=== PATIENT | male | born 1955 | race Caucasian/White ===

== ENCOUNTER 2017-06-10 10:36 | Emergency (ER) | payer SELFPAY ==
[2017-06-10 11:09] VITALS: BP 143/86
--- NOTE | 2017-06-10 14:40 | UC ---
Christa Slaughter Jason, [facility] on 06/10/17 at 1233 . Back Pain HPI - HPI Summary HPI Summary: In Room: This patient is a 61 year old M presenting to [facility] [place] with a chief complaint of lower back pain that started at 1000 1 day ago. The pt states that he slipped and fell on ice and hit the corner of his seat. He is not experiencing left flank pain. The patient rates the pain 6/10 in severity. Symptoms aggravated by exercise/activity, walking, changing position. Symptoms alleviated by nothing. Patient reports left flank pain. Patient denies difficulty breathing, urinary sx, spinal injury, and bowel changes. The pt states he has spent the night at a hospital 20 years ago when he believed he was having a KS. When he broke his rip he was given Vicodin but did not take it. note: VSS, BP 143/86, PULSE OX: 97, 6/10 PAIN. Visit history: noncontributory to present complaint. He is on Lisinopril for HTN. Nurses note: Patient states he slipped and fell yesterday on the ice and he injured his left side and back. He states he hit his truck as he was falling down - History of Current Complaint Chief Complaint: UCBackPain Stated Complaint: FELL SIDE INJURY Time Seen by Provider: 06/10/17 12:24 Hx Obtained From: Patient Onset/Duration: Sudden Onset Timing: Constant Pain Intensity: 6 Pain Scale Used: 0-10 Numeric Character: Sharp Aggravating Factor(s): Other - by exercise/activity, walking, changing position Alleviating Factor(s): Nothing Associated Signs And Symptoms: Positive: Other - left flank pain - Allergies/Home Medications Allergies/Adverse Reactions: Allergies Allergy/AdvReac Type Severity Reaction Status Date / Time No Known Allergies Allergy Verified 06/10/17 11:01 Home Medications: Home Medications Cholesterol Med 06/10/17 [History] PMH/Surg Hx/FS Hx/Imm Hx Previously Healthy: No Cardiovascular History: Hypertension Respiratory History: Other Other Respiratory History: Negative Asthma - Surgical History Surgical History: Yes Surgery Procedure, Year, and Place: hernia repair - Family History Known Family History: Positive: Cardiac Disease Negative: Blood Disorder - Social History Occupation: Employed Full-time Alcohol Use: Occasionally Alcohol Amount: 1 beer/week Substance Use Type: None Smoking Status (MU): Former Smoker Review of Systems All Other Systems Reviewed And Are Negative: Yes - Comments Additional Review of Systems Comments: A 12 point review of systems was completed and significantly positive for: Left flank pain. Negative for: Fever. The remainder of the review was negative except as stated above in the HPI. Physical Exam Triage Information Reviewed: Yes Vital Signs: Initial Vital Signs Temp 98.6 F 06/10/17 11:03 Pulse 92 06/10/17 11:03 Resp 20 06/10/17 11:03 BP 143/86 06/10/17 11:03 Pulse Ox 97 06/10/17 11:03 - Additional Comments General: The patient is well-nourished in no acute distress and in no acute pain. Skin: The skin is warm and dry and skin color reflects adequate perfusion. HEENT: The head is normocephalic and atraumatic. The pupils are equal and reactive. The conjunctivae are clear and without drainage. Nares are patent and without drainage. Mouth reveals moist mucous membranes and the throat is without erythema and exudate. The external ears are intact. The ear canals are patent and without drainage. The tympanic membranes are intact. Neck is supple with full range of motion and non-tender. There are no carotid bruits. There is no neck vein distension. Respiratory: Chest is non-tender. Lungs are clear to auscultation and breath sounds are symmetrical and equal. Cardiovascular: Heart is regular rate and rhythm.~There is no murmur or rub auscultated. There is no peripheral edema and pulses are symmetrical and equal. Abdomen: The abdomen is soft and non-tender. There are normal bowel sounds heard in all four quadrants and there is no organomegaly palpated. Musculoskeletal: There is no back pain noted. Extremities are non-tender with full range of motion. There is good capillary refill. There is no peripheral edema or calf tenderness elicited. Pain in lower left posterior thorax. Pain of palpation in area of D12 posteriorly. Neurological: Patient is alert and oriented to person, place and time. The patient has symmetrical motor strength in all four extremities. Cranial nerves are grossly intact. Deep tendon reflexes are symmetrical and equal in all four extremities. Psychiatric: The patient has an appropriate affect and does not exhibit any anxiety or depression Back Pain Course/Dx - Course Course Of Treatment: This patient is a 61 year old M presenting to [facility] [place] with a chief complaint of lower back pain that started at 1000 1 day ago. The patient s lungs were clear, with no point tenderness to particular rib. The mechanism of injury suggests blunt, mild to moderate trauma. I discussed with the patient that this should get better soon and instructed him to return if he has difficulty breathing or increased body temperature. Dx: contusion of left posterior thorax. - Differential Dx/Diagnosis Differential Diagnosis/HQI/PQRI: Other - Rib fracture, rib injury, contusion, muscle strain Provider Diagnoses: contusion of left posterior thorax Discharge - Discharge Plan Condition: Stable Disposition: HOME Patient Education Materials: Thoracic Back Strain (ED) Referrals: No Primary Care Phys,NOPCP [Primary Care Provider] - Additional Instructions: Thank you for helping us improve patient care by filling out the My Point Survey. WE DISCUSSED: YOU HAVE BRUISED YOUR RIBS. WARM MOIST HEAT IN THE MORNING; ICE TO AREA DURING THE DAY. WATCH FOR ANY PROBLEMS BREATHING. Re check at any time for this or for temperature. FOR PAIN: Ibuprofen 600mg (3 pills) and acetaminophen 500 mg taken at the same time, up to four times a day would be good for both pain and calming down the inflammation. This may irritate your stomach. Take an antacid if it does. If you need to do this for more than a week because of pain, check with your doctor. FOLLOW UP WITH YOUR PRIMARY CARE PHYSICIAN.Your blood pressure reading today was 143/86, indicating HYPERTENSION. Follow-up with your primary care provider within 4 weeks for blood pressure readings and further evaluation. PLEASE SEEK CARE AT THE EMERGENCY DEPARTMENT IF SYMPTOMS WORSEN OR IF NEW SYMPTOMS DEVELOP. The documentation as recorded by the Christa felix Jason accurately reflects the service I personally performed and the decisions made by me, Bienvenido Wallace MD.
== END 2017-06-10 12:43 | disposition home or self-care (01) ==
LOC: UCEAST 10:36
DX: S20.222A Contusion of left back wall of thorax, initial encounter (principal); W00.0XXA Fall on same level due to ice and snow, initial encounter; Y93.9 Activity, unspecified; Y92.9 Unspecified place or not applicable; Y99.9 Unspecified external cause status; Z87.891 Personal history of nicotine dependence
CPT/HCPCS: 99211; G0463

== ENCOUNTER 2017-06-23 08:15 | Emergency (ER) | payer BC ==
[2017-06-23 08:28] VITALS: BP 151/81
--- NOTE | 2017-06-23 08:46 | UC ---
Respiratory Complaint HPI - HPI Summary HPI Summary: 61 yo male with one month hx of nasal congestion and post nasal drip facial pressure cough no f/c - History of Current Complaint Chief Complaint: UCRespiratory Stated Complaint: SINUS ISSUE Time Seen by Provider: 06/23/17 08:40 Hx Obtained From: Patient Onset/Duration: Gradual Onset, Lasting Weeks Timing: Constant Severity Initially: Mild Severity Currently: Moderate Pain Intensity: 4 Pain Scale Used: 0-10 Numeric Character: Cough: Nonproductive Aggravating Factors: Nothing Alleviating Factors: Nothing Associated Signs And Symptoms: Positive: URI, Nasal Congestion, Sinus Discomfort - Allergies/Home Medications Allergies/Adverse Reactions: Allergies Allergy/AdvReac Type Severity Reaction Status Date / Time No Known Allergies Allergy Verified 06/10/17 11:01 Home Medications: Home Medications Acetaminophen [Tylenol] 06/23/17 [History] Ibuprofen TAB* [Motrin TAB* 600 MG] 600 mg PO Q6H PRN 06/23/17 [History Confirmed 06/23/17] PMH/Surg Hx/FS Hx/Imm Hx Previously Healthy: Yes Endocrine History: Dyslipidemia Cardiovascular History: Hypertension - Surgical History Surgical History: Yes Surgery Procedure, Year, and Place: hernia repair - Family History Known Family History: Positive: Cardiac Disease, Hypertension Negative: Blood Disorder - Social History Alcohol Use: Occasionally Alcohol Amount: 1 beer/week Substance Use Type: None Smoking Status (MU): Former Smoker Review of Systems Constitutional: Fever Skin: Negative Eyes: Negative ENT: Sore Throat, Nasal Discharge, Sinus Congestion, Sinus Pain/Tenderness Respiratory: Cough Cardiovascular: Negative Gastrointestinal: Negative Genitourinary: Negative Motor: Negative Neurovascular: Negative Musculoskeletal: Negative Neurological: Negative Psychological: Negative Is Patient Immunocompromised?: No All Other Systems Reviewed And Are Negative: Yes Physical Exam Triage Information Reviewed: Yes Appearance: Well-Appearing, No Pain Distress, Well-Nourished Vital Signs: Initial Vital Signs Temp 98.4 F 06/23/17 08:18 Pulse 88 06/23/17 08:18 Resp 18 06/23/17 08:18 BP 151/81 06/23/17 08:18 Pulse Ox 97 06/23/17 08:18 Eyes: Positive: Conjunctiva Clear ENT: Positive: Hearing grossly normal, Nasal congestion, Nasal drainage, TMs normal, Hoarse voice, Sinus tenderness, Uvula midline. Negative: Tonsillar swelling, Tonsillar exudate, Trismus, Muffled voice Neck: Positive: Supple, Nontender, No Lymphadenopathy Respiratory: Positive: Lungs clear, Normal breath sounds, No respiratory distress, No accessory muscle use Cardiovascular: Positive: RRR, No Murmur Musculoskeletal: Positive: ROM Intact, No Edema Neurological: Positive: Alert Psychological Exam: Normal Skin Exam: Normal UC Diagnostic Evaluation - Laboratory O2 Sat by Pulse Oximetry: 97 - normal/not hyhpoxic Respiratory Course/Dx - Differential Dx/Diagnosis Provider Diagnoses: acute sinusitis Discharge - Discharge Plan Condition: Stable Disposition: HOME Prescriptions: Amoxicillin PO (*) [Amoxicillin 875 MG (*)] 875 mg PO BID #20 tab Fluticasone NASAL SPRAY 50MCG* [Flonase NASAL SPRAY 50MCG*] 2 spray BOTH NARES DAILY #1 btl Patient Education Materials: Sinusitis (ED), Warm Compress or Soak (ED) Referrals: No Primary Care Phys,NOPCP [Primary Care Provider] - Additional Instructions: recheck next week if not better if unable to get in to see your MD you may return here saline nasal spray twice daily
== END 2017-06-23 08:49 | disposition home or self-care (01) ==
LOC: UCEAST 08:15
DX: J01.90 Acute sinusitis, unspecified (principal); Z87.891 Personal history of nicotine dependence; Z72.89 Other problems related to lifestyle
CPT/HCPCS: 99211; G0463

== ENCOUNTER 2017-07-21 18:08 | Emergency (ER) | payer BC ==
[2017-07-21 18:16] VITALS: BP 136/85
--- NOTE | 2017-07-21 18:51 | UC ---
Ravinder Slaughter Natalie, scribed for Antonio Gonzalez MD on 07/21/17 at 1847 . Respiratory Complaint HPI - HPI Summary HPI Summary: The pt is a 61 y/o M presenting to c/o sinus infection symptoms in the last week. He visited for a sinus infection a month ago and was prescribed Augmentin. He felt better, but the symptoms came back. He uses a CPAP at night to some relief. Pt additionally c/o post nasal drip, ear pain, and wheezing. - History of Current Complaint Chief Complaint: UCRespiratory Stated Complaint: SINUS COMPLAINT Time Seen by Provider: 07/21/17 18:23 Hx Obtained From: Patient Onset/Duration: Lasting Days, Still Present Severity Initially: Mild Severity Currently: Mild Pain Intensity: 0 Pain Scale Used: 0-10 Numeric Aggravating Factors: Nothing Alleviating Factors: Nothing Associated Signs And Symptoms: Positive: Wheezing, Nasal Congestion, Sinus Discomfort - Allergies/Home Medications Allergies/Adverse Reactions: Allergies Allergy/AdvReac Type Severity Reaction Status Date / Time No Known Allergies Allergy Verified 07/21/17 18:11 PMH/Surg Hx/FS Hx/Imm Hx - Surgical History Surgical History: Yes Surgery Procedure, Year, and Place: hernia repair - Family History Known Family History: Positive: Cardiac Disease, Hypertension Negative: Blood Disorder - Social History Alcohol Use: Occasionally Alcohol Amount: 1 beer/week Substance Use Type: None Smoking Status (MU): Former Smoker Review of Systems ENT: Ear Ache, Nasal Discharge, Sinus Congestion Respiratory: Other - wheezing All Other Systems Reviewed And Are Negative: Yes Physical Exam Triage Information Reviewed: Yes Appearance: Well-Appearing, No Pain Distress Vital Signs: Initial Vital Signs Temp 97.7 F 07/21/17 18:13 Pulse 78 07/21/17 18:13 Resp 20 07/21/17 18:13 BP 136/85 07/21/17 18:13 Pulse Ox 96 07/21/17 18:13 Vital Signs Reviewed: Yes Eye Exam: Normal ENT: Positive: Normal ENT inspection Neck: Positive: Supple, Nontender Respiratory: Positive: Other: - CTA, breath sounds present Cardiovascular: Positive: RRR Abdomen Description: Positive: Nontender, Soft Bowel Sounds: Positive: Present Musculoskeletal Exam: Normal Musculoskeletal: Positive: Strength Intact, ROM Intact Neurological: Positive: Other: - normal, sensory/motor intact, A&O x3 Psychological: Positive: Other: - affect/mood appropriate Skin: Positive: Other - warm, color reflects adequate perfusion, dry UC Diagnostic Evaluation - Laboratory O2 Sat by Pulse Oximetry: 96 Respiratory Course/Dx - Course Course Of Treatment: Medications reviewed. SINUSITIS LAST MONTH TREATED WITH AUGMENTIN. SX HAVE RETURNED. DISCUSSED TREATMENT WITH AUGMENTIN AGAIN VERSES STARTING A NEW ABX. PATIENT PREFERS A NEW ABX. RX MOXIFLOXACIN. F/U PMD; RETURN IF WORSE. - Differential Dx/Diagnosis Provider Diagnoses: RECURRENT SINUSITIS Discharge - Discharge Plan Condition: Stable Disposition: HOME Prescriptions: Moxifloxacin TAB(NF) [Avelox TAB (NF)] 400 mg PO DAILY #10 tab Patient Education Materials: Sinusitis (ED) Referrals: [facility] [place] [facility]IAN REFERRAL [Outside] No Primary Care Phys,NOPCP [Primary Care Provider] - Additional Instructions: FOLLOW UP WITH YOUR DOCTOR. GET RECHECKED FOR ANY WORSENING OF YOUR CONDITION OR QUESTIONS OR CONCERNS. The documentation as recorded by the Ravinder felix Natalie accurately reflects the service I personally performed and the decisions made by me, Antonio Gonzalez MD.
== END 2017-07-21 18:45 | disposition home or self-care (01) ==
LOC: UCEAST 18:08
DX: J32.9 Chronic sinusitis, unspecified (principal); Z87.891 Personal history of nicotine dependence
CPT/HCPCS: 99212; G0463

== ENCOUNTER 2018-11-08 17:06 | Emergency (ER) | payer BC ==
[2018-11-08 17:21] VITALS: BP 154/86
--- NOTE | 2018-11-08 17:41 | UC ---
Skin Complaint HPI - HPI Summary HPI Summary: 63-year-old male presents with complaints of tick bite to his right forearm. States she discovered the tick this afternoon and removed immediately. He is uncertain of how long it was attached or if it was engorged. Denies fever, chills, flulike illness, rash, myalgias, joint pain or swelling. - History of Current Complaint Chief Complaint: UCSkin Time Seen by Provider: 11/08/18 17:27 Stated Complaint: TICK BITE Hx Obtained From: Patient Pain Intensity: 0 - Allergy/Home Medications Allergies/Adverse Reactions: Allergies Allergy/AdvReac Type Severity Reaction Status Date / Time No Known Allergies Allergy Verified 07/21/17 18:11 Home Medications: Home Medications Ibuprofen 800 mg PO Q8HR PRN 11/08/18 [History Confirmed 11/08/18] PMH/Surg Hx/FS Hx/Imm Hx Endocrine History: Dyslipidemia Cardiovascular History: Hypertension - Surgical History Surgical History: Yes Surgery Procedure, Year, and Place: hernia repair - Family History Known Family History: Positive: Cardiac Disease, Hypertension Negative: Blood Disorder - Social History Occupation: Employed Full-time Lives: With Family Alcohol Use: Occasionally Alcohol Amount: 1 beer/week Substance Use Type: None Smoking Status (MU): Former Smoker Review of Systems All Other Systems Reviewed And Are Negative: Yes Constitutional: Negative: Fever, Chills Skin: Negative: Rash Respiratory: Positive: Negative Cardiovascular: Positive: Negative Gastrointestinal: Positive: Negative Genitourinary: Positive: Negative Musculoskeletal: Negative: Arthralgia, Myalgia Neurological: Positive: Negative Is Patient Immunocompromised?: No Physical Exam - Summary Physical Exam Summary: GENERAL APPEARANCE: Well developed, well nourished, alert and cooperative, and appears to be in no acute distress. CARDIAC: Normal S1 and S2. No S3, S4 or murmurs. Rhythm is regular. There is no peripheral edema, cyanosis or pallor. Extremities are warm and well perfused. Capillary refill is less than 2 seconds. Peripheral pulses intact. LUNGS: Clear to auscultation without rales, rhonchi, wheezing or diminished breath sounds. ABDOMEN: Positive bowel sounds. Soft, nondistended, nontender. No guarding or rebound. No masses or hepatosplenomegally. MUSKULOSKELETAL: ROM intact to all extremities. No joint erythema or tenderness. Normal muscular development. Normal gait. SKIN: 1.5 cm area of erythema to right forearm. Triage Information Reviewed: Yes Vital Signs: Initial Vital Signs Temp 98.9 F 11/08/18 17:17 Pulse 77 11/08/18 17:17 Resp 18 11/08/18 17:17 BP 154/86 11/08/18 17:17 Pulse Ox 94 11/08/18 17:17 Vital Signs Reviewed: Yes Course/Dx - Course Course Of Treatment: 63-year-old male presents with complaints of tick bite to his right forearm. States she discovered the tick this afternoon and removed immediately. He is uncertain of how long it was attached or if it was engorged. Denies fever, chills, flulike illness, rash, myalgias, joint pain or swelling. Afebrile. Hypertensive otherwise vital signs stable. Exam revealed a 1.5 cm circular area of erythema to his right forearm and was otherwise unremarkable. Discussed criteria for prophylactic treatment for Lyme disease as well as the risks and benefits of taking the doxycycline and patient is electing to treat at this time. He was given doxycycline 200 mg 1 dose in the clinic. I reviewed signs and symptoms of Lyme disease with the patient as well as provided him with anticipatory guidance and warning symptoms requiring immediate medical attention. He verbalizes understanding and agrees with plan of care. - Differential Diagnoses - Skin Complaint Differential Diagnoses: Local Allergic Reaction, Tick Born Illness - Diagnoses Provider Diagnosis: Tick bite of right forearm Discharge - Sign-Out/Discharge Documenting (check all that apply): Patient Departure All imaging exams completed and their final reports reviewed: No Studies - Discharge Plan Condition: Stable Disposition: HOME Patient Education Materials: Tick Bite (ED) Referrals: No Primary Care Phys,NOPCP [Primary Care Provider] - Additional Instructions: Ticks transmit infection only after they have attached and then taken a blood meal from their new host. A tick that has not attached cannot not pass any infection. Since the deer tick that transmits Lyme disease typically feeds for more than 36 hours before transmitting the organisim that causes Lyme disease, the risk of acquiring Lyme disease from an tick bite is only 1.2 to 1.4 percent , even in an area where the disease is common. Since we do not know how long the tick was attached or if it was engorged we gave you a dose of doxycycline 200 mg x 1 dose in the clinic which is used to prevent Lyme disease. There is no benefit of blood testing for Lyme disease at the time of the tick bite because even people who become infected will not have a positive blood test until approximately two to six weeks after the tick bite. To try to avoid getting bitten by a tick, you can: * Wear shoes, long-sleeved shirts, and long pants when you go outside. Keep ticks away from your skin by tucking your pants into your socks. * Wear light colors so you can spot any ticks that get on your clothes. * Wear bug spray or cream that contains DEET. (Do not use DEET on babies younger than 2 months.) On your clothes and gear, you can use bug repellents that have a chemical called "permethrin." * Shower within 2 hours of being outdoors if you think you have been in an area where there are ticks. * Put dry clothes briefly (for about 4 minutes) in a dryer after being outdoors. * Check your clothes and body for ticks after being outdoors. Be sure to check your scalp, waist, armpits, groin, and backs of your knees. Check your children , too. After a tick bite, you will need to monitor for signs of Lyme disease over the nexter several weeks even if you have been given antibiotics to prevent the infection. Seek immediate medical attention if you develop a bullseye rash, fever, flu-like symptoms including headache, stiff neck, fatigue, muscle aches, joint pain or swelling. - Billing Disposition and Condition Condition: STABLE Disposition: Home
[2018-11-08] MEDS ORDERED: DOXYcycline CAP(*) 100 MG PO ONE (17:45)
== END 2018-11-08 17:50 | disposition home or self-care (01) ==
LOC: UCEAST 17:06
DX: S50.861A Insect bite (nonvenomous) of right forearm, initial encounter (principal); I10 Essential (primary) hypertension; W57.XXXA Bitten or stung by nonvenomous insect and other nonvenomous arthropods, initial encounter; Y92.9 Unspecified place or not applicable
CPT/HCPCS: 99201; A9270-GY; G0463

== ENCOUNTER 2019-02-02 14:32 | Emergency (ER) | payer BC, OTHER ==
[2019-02-02 14:49] VITALS: BP 157/91
--- NOTE | 2019-02-02 15:28 | UC ---
Lower Extremity/Ankle HPI - HPI Summary HPI Summary: 63 year old male presents with right knee pain since yesterday, patient was stepping from platform, noted immediate increased pain. States" on fire", burning sensation, posterior. Worse with bending, twisting. - History of Current Complaint Chief Complaint: UCLowerExtremity Stated Complaint: R KNEE INJURY Time Seen by Provider: 02/02/19 15:25 Hx Obtained From: Patient Onset/Duration: Sudden Onset, Lasting Days Severity Initially: Severe Severity Currently: Severe Pain Intensity: 9 Pain Scale Used: 0-10 Numeric Aggravating Factor(s): Standing, Ambulation Alleviating Factor(s): Rest Able to Bear Weight: No - Allergies/Home Medications Allergies/Adverse Reactions: Allergies Allergy/AdvReac Type Severity Reaction Status Date / Time No Known Allergies Allergy Verified 02/02/19 14:49 PMH/Surg Hx/FS Hx/Imm Hx Previously Healthy: Yes - Surgical History Surgical History: Yes Surgery Procedure, Year, and Place: hernia repair - Family History Known Family History: Positive: Cardiac Disease, Hypertension, Non-Contributory Negative: Blood Disorder - Social History Alcohol Use: Occasionally Alcohol Amount: 1 beer/week Substance Use Type: None Smoking Status (MU): Former Smoker Review of Systems All Other Systems Reviewed And Are Negative: Yes Constitutional: Negative: Fever Musculoskeletal: Positive: Arthralgia, Decreased ROM, Edema, Myalgia Is Patient Immunocompromised?: No Physical Exam Triage Information Reviewed: Yes Appearance: Well-Appearing, No Pain Distress, Well-Nourished Vital Signs: Initial Vital Signs Temp 98.8 F 02/02/19 14:44 Pulse 79 02/02/19 14:44 Resp 16 02/02/19 14:44 BP 157/91 02/02/19 14:44 Pulse Ox 96 02/02/19 14:44 Vital Signs Reviewed: Yes Eyes: Positive: Conjunctiva Clear ENT: Positive: Hearing grossly normal Musculoskeletal: Positive: Strength Intact, ROM Intact, Other: - TTP over lateral meniscus extending into posterior. mild posterior fullness, full ROM, good strength, + yosef, + pain with lat stressing, neg homans, neg acl, pcl. Neurological Exam: Normal Neurological: Positive: Other: - SITLT Psychological Exam: Normal Skin: Positive: Other - no open wounds, sores, erythema. Lower Extremity Course/Dx - Course Course Of Treatment: Possible meniscal injury or arthritis flare up - Naproxen/ Alleve twice daily x 2-3 days - Increase rest, Ice 20 mins off, 20 mins on as much as possible - Elevate - Follow up with orthopedics within 3-5 days if no improvement - Work note given - Differential Dx/Diagnosis Differential Diagnosis/HQI/PQRI: Strain, Tendonitis, Tenosynovitis Provider Diagnosis: Knee pain Discharge ED - Sign-Out/Discharge Documenting (check all that apply): Patient Departure All imaging exams completed and their final reports reviewed: Yes - Discharge Plan Condition: Good Disposition: HOME Prescriptions: Naproxen [Naproxen 250 mg tab] 250 mg PO BID #60 tablet Patient Education Materials: Knee Pain (ED) Forms: *Work Release Referrals: David Regalado MD [Medical Doctor] - Angelique Nunez MD [Primary Care Provider] - Additional Instructions: - Possible meniscal injury or arthritis flare up - Naproxen/ Alleve twice daily x 2-3 days - Increase rest, Ice 20 mins off, 20 mins on as much as possible - Elevate - Follow up with orthopedics within 3-5 days if no improvement - Work note given - Billing Disposition and Condition Condition: GOOD Disposition: Home
--- NOTE | 2019-02-05 16:03 | UC ---
- Progress Note Progress Note: Patient Name: SYLVIA HERNANDEZ Medical Record#: [id number] Ordering Physician: Carolann MAZARIEGOS Acct.#: [id number] : 1955 Age: 63 Sex: M Location: [facility] Exam Date: 02/02/19 1525 ADM Status: REG ER Order Information: KNEE RIGHT 4+ VWS Accession Number: [id number] CPT: 08837 Indication: Right knee pain. 4 views of the right knee demonstrates no fracture or dislocation. No other bone or joint abnormality is identified. Joint spaces well-preserved. No joint effusion is noted. IMPRESSION: Unremarkable right knee. <Electronically signed by Kaleigh Pedersen MD in OV> 02/02/19 1551 Dictated By: Kaleigh Pedersen MD Dictated Date/Time: 02/02/19 1551 Transcribed Date/Time: 02/02/19 1550 Copy to: CC:Fuad Dallas MD; Carolann MAZARIEGOS; Angelique Nunez MD [facility] - [address] [address] ph ([phone]) ph ([phone]) ph ([phone]) This report is only to be considered final once signed by the Provider(s) as displayed in the "<Electronically Signed by >" field (s). Absence of a signature indicates the report is in a draft status and still needs to be finalized. In the event this document was created by someone other than the signing Provider, the individual initiating the document will be listed in the "Entered by:" or "Dictated by:" simms. 1 of 1 Course/Dx - Diagnoses Provider Diagnoses: Knee pain Discharge - Sign-Out/Discharge Documenting (check all that apply): Post-Discharge Follow Up All imaging exams completed and their final reports reviewed: Yes - Discharge Plan Condition: Good Disposition: HOME Prescriptions: Naproxen [Naproxen 250 mg tab] 250 mg PO BID #60 tablet Patient Education Materials: Knee Pain (ED) Forms: *Work Release Referrals: David Regalado MD [Medical Doctor] - Angelique Nunez MD [Primary Care Provider] - Additional Instructions: - Possible meniscal injury or arthritis flare up - Naproxen/ Alleve twice daily x 2-3 days - Increase rest, Ice 20 mins off, 20 mins on as much as possible - Elevate - Follow up with orthopedics within 3-5 days if no improvement - Work note given - Billing Disposition and Condition Condition: GOOD Disposition: Home
== END 2019-02-02 16:44 | disposition home or self-care (01) ==
LOC: UCEAST 14:32
DX: M25.561 Pain in right knee (principal); Z87.891 Personal history of nicotine dependence
CPT/HCPCS: 99212; G0463

== ENCOUNTER 2019-06-23 13:17 | Emergency (ER) | payer SELFPAY ==
--- NOTE | 2019-06-23 13:34 | ED ---
Lower Extremity - HPI Summary HPI Summary: This pt is a 63 y/o male presenting to [facility] via EMS for right ankle pain s/p mechanical fall at around 1250 today. Pt reports he was at work when he tripped over a ramp and heard his right ankle "pop." He denies head strike or LOC. He states he was lying on the mud and was not able to ambulate after the fall. He also reports some swelling to his right ankle. Denies any other injuries or complaints from fall today. Denies any PMHx. - History of Current Complaint Chief Complaint: EDExtremityLower Stated Complaint: FALL ANKLE INJURY RIGHT Time Seen by Provider: 06/23/19 13:22 Hx Obtained From: Patient Mechanism Of Injury: Fall From A Standing Position - s/p tripping Onset of Pain: Immediate Onset/Duration: Still Present Severity Currently: Mild Pain Intensity: 3 Pain Scale Used: 0-10 Numeric Timing: Lasting Minutes Location: Is Discrete @ - right ankle Associated Signs And Symptoms: Positive: Swelling Aggravating Factor(s): Weight Bearing Alleviating Factor(s): Rest Able to Bear Weight: No - Allergies/Home Medications Allergies/Adverse Reactions: Allergies Allergy/AdvReac Type Severity Reaction Status Date / Time No Known Allergies Allergy Verified 06/23/19 13:24 PMH/Surg Hx/FS Hx/Imm Hx Endocrine/Hematology History: Denies: Hx Diabetes, Hx Thyroid Disease Cardiovascular History: Reports: Hx Hypertension Respiratory History: Denies: Hx Asthma, Hx Chronic Obstructive Pulmonary Disease (COPD) GI History: Denies: Hx Ulcer - Surgical History Surgical History: Yes Surgery Procedure, Year, and Place: hernia repair Infectious Disease History: No Infectious Disease History: Denies: Hx Clostridium Difficile, Hx Hepatitis, Hx Human Immunodeficiency Virus (HIV), Hx of Known/Suspected MRSA, Hx Shingles, Hx Tuberculosis, Hx Known/ Suspected VRE, Hx Known/Suspected VRSA, History Other Infectious Disease, Traveled Outside the [place] in Last 30 Days - Family History Known Family History: Positive: Cardiac Disease - Father with fatal [place], Hypertension Negative: Blood Disorder - Social History Alcohol Use: Occasionally Alcohol Amount: 1 beer/week Substance Use Type: Reports: None Smoking Status (MU): Former Smoker Review of Systems Negative: Fever, Chills Cardiovascular: Negative Respiratory: Negative Gastrointestinal: Negative Musculoskeletal: Other - POSITIVE: right ankle pain Positive: Edema - right ankle Negative: Headache All Other Systems Reviewed And Are Negative: Yes Physical Exam - Summary Physical Exam Summary: Constitutional: Well-developed, Well-nourished, Alert. (-) Distressed Skin: Warm, Dry HENT: Normocephalic; Atraumatic Eyes: Conjunctiva normal Neck: Musculoskeletal ROM normal neck. (-) JVD, (-) Stridor Cardio: Rhythm regular, rate normal, Heart sounds normal; Intact distal pulses; Radial pulses are 2+ and symmetric. (-) Murmur Pulmonary/Chest wall: Effort normal. (-) Respiratory distress, (-) Wheezes, (-) Rales Abd: Soft, (-) tenderness, (-) Distension, (-) Guarding, (-) Rebound Musculoskeletal: Right lower extremity: Right lateral malleolar tenderness. No tenderness of the foot, proximal tib fib, or knee. 2+ DP pulse on the right. Neuro: Alert, Oriented x3 Psych: Mood and affect Normal Triage Information Reviewed: Yes Vital Signs On Initial Exam: Initial Vitals Temp Pulse Resp BP Pulse Ox 97.9 F 90 18 176/93 93 06/23/19 13:18 06/23/19 13:18 06/23/19 13:18 06/23/19 13:18 06/23/19 13:18 Vital Signs Reviewed: Yes Procedures - Sedation Patient Received Moderate/Deep Sedation with Procedure: No - Splinting Right Lower Extremity Location: right distal fibula Hand-Made Type: orthoglass Splint: posterior short leg Pre-Proc Neuro Vasc Exam: normal Post-Proc Neuro Vasc Exam: normal Splint Applied by Provider: Alicia Leon Diagnostics - Vital Signs Vital Signs Temp Pulse Resp BP Pulse Ox 06/23/19 13:18 97.9 F 90 18 176/93 93 - Laboratory Lab Statement: Any lab studies that have been ordered have been reviewed, and results considered in the medical decision making process. - Radiology Right ankle XR Radiology Interpretation Completed By: Radiologist Summary of Radiographic Findings: IMPRESSION: Oblique intra-articular slightly displaced fracture of the distal fibula probable mild widening of the medial ankle mortise. Dr. Leon has reviewed this report. Right tib fib XR Radiology Interpretation Completed By: Radiologist Summary of Radiographic Findings: IMPRESSION: Oblique slightly displaced intra- articular fracture of the distal fibula. No additional fracture is seen. Dr. Leon has reviewed this report. Re-Evaluation - Re-Evaluation First Eval Re-Evaluation Time: 14:12 Comment: Finished splinting patient. Please see procedure note. Lower Extremity Course/Dx - Course Course Of Treatment: 63 -year-old male presents with right ankle pain after fall , x-ray shows a Neal C fracture w widening of the mortise. Placed in a short leg splint, follow-up with orthopedics. Nonweightbearing - Diagnoses Provider Diagnoses: Right fibular fracture Discharge ED - Sign-Out/Discharge Documenting (check all that apply): Patient Departure - Discharge home - Discharge Plan Condition: Stable Disposition: HOME Patient Education Materials: Ankle Fracture (ED) Referrals: Angelique Nunez MD [Primary Care Provider] - Shazia Sifuentes MD [Medical Doctor] - Additional Instructions: You were seen in the emergency department for ankle pain. Your x-ray showed a fibula fracture. Please call the orthopedic office to let them know you were seen here to make a follow-up appointment. Do not walk on this leg. Please follow up with your primary care doctor in next 2-3 days and return to emergency department for worsening pain, numbness or tingling of your leg, or concerning symptoms. It was a pleasure taking care of you today. - Billing Disposition and Condition Condition: STABLE Disposition: Home - Attestation Statements Document Initiated by Anette: Yes Documenting Scribe: Alida Najera Provider For Whom Anette is Documenting (Include Credential): Alicia Leon MD Scribe Attestation: I, Alida Najera, scribed for Alicia Leon MD on 06/23/19 at 1417. Scribe Documentation Reviewed: Yes Provider Attestation: The documentation as recorded by the Alida felix accurately reflects the service I personally performed and the decisions made by me, Alicia Leon MD Status of Scribe Document: Viewed
[2019-06-23 14:45] VITALS: BP 172/92
== END 2019-06-23 15:15 | disposition home or self-care (01) ==
LOC: ED 13:17
DX: S82.831A Other fracture of upper and lower end of right fibula, initial encounter for closed fracture (principal); W01.0XXA Fall on same level from slipping, tripping and stumbling without subsequent striking against object, initial encounter; Y92.89 Other specified places as the place of occurrence of the external cause; Y99.0 Civilian activity done for income or pay; I10 Essential (primary) hypertension; Z87.891 Personal history of nicotine dependence
CPT/HCPCS: 99282

== ENCOUNTER 2019-09-25 07:57 | Day surgery (SDC) | payer OTHER ==
[~2019-09-25 07:57] MED LIST: Buffered Lidocaine 1% SYRIN 1 ml INTRADERM ONE; Dexamethasone IV 4 MG/ML VIAL 1 ml VIAL IV SLOW PU ONE; Dexamethasone IV 4 MG/ML VIAL 1 ml VIAL ONE; Famotidine IV 10 MG/ML 2 ml VIAL (20 mg) IV ONE; Famotidine IV 10 MG/ML 2 ml VIAL (20 mg) ONE; Lactated Ringers 1000 ml BAG 1,000 ML IV SCH
[2019-09-25] MEDS ORDERED: ceFAZolin 2 GM PREMIX in ORs 2 GM/50 ML BAG ONE (08:19)
[2019-09-25] MEDS ORDERED: Midazolam 5 mg/5 ml VIAL 1 mg/ml 5 ml VIAL (5 mg) ONE (09:46)
[2019-09-25] MEDS ORDERED: fentaNYL 100 mcg/2 ml 50 MCG/ML VIAL ONE (09:46)
[2019-09-25] MEDS ORDERED: HYDROcodone/ACETAMIN 5/325 mg TAB PO PRN (09:50)
[2019-09-25] MEDS ORDERED: Ondansetron 4 mg VIAL 2 MG/ML 2 ml VIAL IV PRN (09:50)
[2019-09-25] MEDS ORDERED: fentaNYL 100 mcg/2 ml 50 MCG/ML VIAL IV PRN (09:50)
[2019-09-25] MEDS ORDERED: DiMENhydriNATE IV 50 mg/ml 1 ml VIAL IV PUSH PRN (09:50)
[2019-09-25] MEDS ORDERED: Naloxone 0.4 mg VIAL 0.4 mg/ml 1 ml VIAL IV PRN (09:50)
[2019-09-25] MEDS ORDERED: Midazolam 2 mg/2 ml VIAL 1 mg/ml 2 ml VIAL (2 mg) ONE (10:25)
[2019-09-25] MEDS ORDERED: Propofol 10 MG/ML 20 ML BTL ONE (10:27)
[2019-09-25] MEDS ORDERED: Lidocaine 2% PF 5 ML VIAL ONE (10:27)
[2019-09-25] MEDS ORDERED: oxyCODONE/Acetamin 5/325 mg TAB ONE ×2 (12:05→13:10)
[2019-09-25] MEDS: oxyCODONE/Acetamin 5/325 mg TAB PO PRN ×2 (12:08→13:23)
[2019-09-25 13:33] VITALS: BP 171/96
== END 2019-09-25 13:28 | disposition home or self-care (01) ==
LOC: OREAST 07:57
PROVIDERS: ATTEND Orthopaedic Surgery
DX: S82.64XG Nondisplaced fracture of lateral malleolus of right fibula, subsequent encounter for closed fracture with delayed healing (principal); E78.5 Hyperlipidemia, unspecified; G47.33 Obstructive sleep apnea (adult) (pediatric); I12.9 Hypertensive chronic kidney disease with stage 1 through stage 4 chronic kidney disease, or unspecified chronic kidney disease; N18.9 Chronic kidney disease, unspecified; R97.20 Elevated prostate specific antigen [PSA]; X58.XXXD Exposure to other specified factors, subsequent encounter; Y92.89 Other specified places as the place of occurrence of the external cause